=== PATIENT | female | born 1955 | race Caucasian/White ===

== ENCOUNTER 2023-10-29 07:31 | Outpatient (REF) | payer OTHER, SELFPAY ==
--- NOTE | ~2023-10-29 | XR_ITS ---
EXAMINATION: XR BILATERAL KNEES CLINICAL INFORMATION: Pain in left knee and right knee. COMPARISON: 09/14/2016. TECHNIQUE: 3 views of each knee. FINDINGS: LEFT KNEE: Moderate joint effusion. The bones are diffusely demineralized. Advanced degenerative changes in the medial and patellofemoral compartments with marked narrowing of the joint spaces, and marginal osteophytes. Lateral compartment preserved. RIGHT KNEE: No significant effusion. Bones are diffusely demineralized. Severe degenerative changes in the medial compartment with obliteration of the joint space and subchondral sclerosis with remodeling and hypertrophic change. Advanced degenerative changes with hypertrophic change in the patellofemoral compartment. XR/XR knee RT 3V IMPRESSION: Advanced degenerative changes in the bilateral knees, right greater than left.
--- NOTE | ~2023-10-29 | XR_ITS ---
EXAMINATION: XR BILATERAL KNEES CLINICAL INFORMATION: Pain in left knee and right knee. COMPARISON: 09/14/2016. TECHNIQUE: 3 views of each knee. FINDINGS: LEFT KNEE: Moderate joint effusion. The bones are diffusely demineralized. Advanced degenerative changes in the medial and patellofemoral compartments with marked narrowing of the joint spaces, and marginal osteophytes. Lateral compartment preserved. RIGHT KNEE: No significant effusion. Bones are diffusely demineralized. Severe degenerative changes in the medial compartment with obliteration of the joint space and subchondral sclerosis with remodeling and hypertrophic change. Advanced degenerative changes with hypertrophic change in the patellofemoral compartment. XR/XR knee LT 3V IMPRESSION: Advanced degenerative changes in the bilateral knees, right greater than left.
== END 2023-10-29 07:32 | disposition home or self-care (01) ==
LOC: HO.HOSX 07:31
PROVIDERS: Visit Provider Orthopaedic Surgery
DX: M17.0 Bilateral primary osteoarthritis of knee (principal)
CPT/HCPCS: 73562

== ENCOUNTER 2023-10-29 11:28 | Outpatient (AMB) | payer OTHER, SELFPAY ==
--- NOTE | 2023-10-29 11:36 | A.OFFVIS_ITS ---
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 Clarke with bilateral knee pain. Patient reports her pain has been going on for about 10 years and is a 6 on the 1-10 pain scale. She states her Right is worse. She just had injections the begining of October 2023. She is using CBD, compound gel, and topical THC with some relief. She denies injury and surgery. She wishes to hold off on total knee replacement surgery for as long as possible. She denies any locking or giving way. 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 Physical Exam Vital Signs: BMI result Body Mass Index 26.2 Const Other: Well-nourished well-developed very friendly female awake alert and oriented x3 in no acute distress Extrem Other: Bilateral lower extremity examination shows good capillary refill, no skin lesions noted, normal sensation light touch Bilateral knee examination shows minimal effusions, palpable crepitus with range motion, pain with range of motion, range of motion from -3 degrees to 115 degrees, no instability Results Reviewed Results Reviewed: X-rays of the patient's bilateral knee show severe degenerative joint disease with grade 4 doer-ja-zubl arthritis, subchondral sclerosis, osteophyte formation, no acute bony abnormalities Assessment & Plan Assessment & Plan (1) Arthritis of left knee: Code(s): M17.12 - Unilateral primary osteoarthritis, left knee Category: Medical (2) Arthritis of right knee: Code(s): M17.11 - Unilateral primary osteoarthritis, right knee Category: Medical Plan Mrs. Lynn presents with bilateral knee pains due to severe degenerative joint disease. The patient wishes to hold off on total knee replacement surgery for as long as possible. I agree with this plan. She will continue with her activity modifications. She has not able to get a cortisone injection today because she had injections earlier this month. She will contact me prior to her follow-up appointment in 3 months should any questions or concerns arise. Feel free to call me at any time should questions regarding her orthopedic management arise. I spent 22 minutes in reviewing the patient's records and imaging studies, seeing the patient and documenting in the medical record. Orders: Orders XR knee LT 3V Today M25.562 - Pain in left knee XR knee RT 3V Today M25.561 - Pain in right knee Coding Level of Care Code Est Pt Level 2 (59793) Diagnoses Arthritis of left knee M17.12 Arthritis of right knee M17.11
[2023-10-29 11:45] VITALS: BMI 26.2
== END 2023-10-29 12:16 | disposition home or self-care (01) ==
PROVIDERS: PCP Internal Medicine; Visit Provider Orthopaedic Surgery
DX: M17.0 Bilateral primary osteoarthritis of knee (principal)
CPT/HCPCS: 99213

== ENCOUNTER 2024-02-11 11:26 | Outpatient (AMB) | payer OTHER, SELFPAY ==
--- NOTE | 2024-02-11 11:28 | A.OFFVIS_ITS ---
Intake Visit Reasons: Right knee pain Intake Note: Sushma is a 68 year old female who presents with complaints of progressively worsening bilateral knee pains, right greater than left. The patient describes her right knee pain as sharp in nature. Her right knee pain has gotten worse over the last few years in spite of continued non operative treatments. She has done physical therapy exercises which aggravated her pain. She has also tried Tylenol and anti-inflammatory medicines which gave her minimal relief. She wishes to hold off on total knee replacement surgery for as long as possible. 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 Physical Exam Const Other: Well-nourished well-developed very friendly female awake alert and oriented x3 in no acute distress Extrem Other: Bilateral lower extremity examination shows good capillary refill, no skin lesions noted, normal sensation light touch Right knee examination shows a minimal effusion, palpable crepitus with range of motion, pain with range of motion, no instability Office Procedures Joint Injection/Aspiration Joint Injection/Aspiration Primary Site: right knee Prep: site was prepped using aseptic technique Injected: 40 mg of, DepoMedrol and 1% plain lidocaine Procedure: The patient tolerated the procedure well Coding 27620 - Large joint Procedure code (CPT) selection complete Results Reviewed Results Reviewed: X-rays of the patient's right knee show joint space narrowing, subchondral s clerosis, no acute bony abnormalities Assessment & Plan Assessment & Plan (1) Arthritis of right knee: Code(s): M17.11 - Unilateral primary osteoarthritis, right knee Category: Medical (2) Right knee pain: Code(s): M25.561 - Pain in right knee Category: Medical Plan Mrs. Lynn presents with progressively worsening bilateral knee pains, right greater than left, due to degenerative joint disease. I had a lengthy discussion with the patient regarding the treatment options. The risks and benefits of a right knee cortisone injection were discussed at length with the patient. The patient wished to proceed. She tolerated the injection well. I also gave her a prescription for a Medrol Dosepak. I will see her back in 3-4 weeks' time for possible left knee cortisone injection. Feel free to call me at any time should questions regarding her orthopedic management arise. I spent 22 minutes in reviewing the patient's records and imaging studies, seeing the patient and documenting in the medical record. Orders: Orders AMB Joint Injection/Aspiration Today M17.11 - Unilateral primary osteoarthritis, right knee Medications: New methylprednisolone (Medrol (Yahir)) PO PER PKG DIR 21 ea 0RF Coding Level of Care Code Est Pt Level 3 (60928) Diagnoses Arthritis of right knee M17.11 Right knee pain M25.561 CPT Codes Coding - 48122 Large joint: 24402 - Large joint ([id number])
== END 2024-02-11 11:58 | disposition home or self-care (01) ==
PROVIDERS: PCP Internal Medicine; Visit Provider Orthopaedic Surgery
DX: M17.11 Unilateral primary osteoarthritis, right knee (principal); M25.561 Pain in right knee
CPT/HCPCS: 20610; 99213

== ENCOUNTER → 2024-02-11 11:26 | Outpatient (BNVA) | payer OTHER, SELFPAY | PROVIDERS: PCP Internal Medicine; Visit Provider Orthopaedic Surgery | DX: M17.11 Unilateral primary osteoarthritis, right knee (principal) | CPT/HCPCS: 20610; J1010 ==

== ENCOUNTER 2024-03-03 08:12 | Outpatient (AMB) | payer OTHER, SELFPAY ==
[2024-03-03 08:14] VITALS: BMI 26.2
--- NOTE | 2024-03-03 08:14 | A.OFFVIS_ITS ---
Vital Signs 03/03/24 08:14 Height 5 ft 3 in Weight 148 lb BMI 26.2 Intake Visit Reasons: Left knee pain Intake Note: Sushma is a 68 year old female who presents with complaints of progressively worsening left knee pain. She describes her pain as sharp in nature. She has had cortisone injections in the past which gave her fairly good relief. She wishes to hold off on total knee replacement surgery for as long as possible. She has tried Tylenol and anti-inflammatory medicines which gave her minimal relief. She has also done physical therapy exercises which aggravated her pain. 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 Physical Exam Vital Signs: BMI result Body Mass Index 26.2 Const Other: Well-nourished well-developed very friendly female awake alert and oriented x3 in no acute distress Extrem Other: Bilateral lower extremity examination shows good capillary refill, no skin lesions noted, normal sensation light touch Left knee examination shows a minimal effusion, palpable crepitus with range of motion, pain with range of motion, range of motion from -3 degrees to 115 degrees, no instability Office Procedures Joint Injection/Aspiration Joint Injection/Aspiration Primary Site: left knee Prep: site was prepped using aseptic technique Injected: 40 mg of, DepoMedrol and 1% plain lidocaine Procedure: The patient tolerated the procedure well Coding 89011 - Large joint Procedure code (CPT) selection complete Results Reviewed Results Reviewed: X-rays of the patient's left knee taken previously show end-stage degenerative joint disease with grade 4 vido-ln-qqho arthritis, subchondral sclerosis, osteophyte formation, no acute bony abnormalities Assessment & Plan Assessment & Plan (1) Arthritis of left knee: Code(s): M17.12 - Unilateral primary osteoarthritis, left knee Category: Medical (2) Left knee pain: Code(s): M25.562 - Pain in left knee Category: Medical Plan Ms. Lynn presents with progressively worsening left knee pain due to severe degenerative joint disease. I had a lengthy discussion with the patient regarding the treatment options. The patient wishes to hold off on total knee replacement surgery for as long as possible. I agree with this plan. The risks and benefits of a left knee cortisone injection were discussed at length with the patient. The patient wished to proceed. She tolerated the injection well. She will continue with her activity modifications. She will follow up with me on an as-needed basis should her symptoms not plateau at an unacceptable level over the next few months. Feel free to call me at any time should questions regarding her orthopedic management arise. I spent 20 minutes in reviewing the patient's records and imaging studies, seeing the patient and documenting in the medical record. Orders: Orders AMB Joint Injection/Aspiration Today M17.12 - Unilateral primary osteoar thritis, left knee Coding Level of Care Code Est Pt Level 3 (60063) Diagnoses Arthritis of left knee M17.12 Left knee pain M25.562 CPT Codes Coding - 62485 Large joint: 85891 - Large joint ([id number])
== END 2024-03-03 08:35 | disposition home or self-care (01) ==
PROVIDERS: PCP Internal Medicine; Visit Provider Orthopaedic Surgery
DX: M17.12 Unilateral primary osteoarthritis, left knee (principal)
CPT/HCPCS: 20610; 99213

== ENCOUNTER → 2024-03-03 08:12 | Outpatient (BNVA) | payer OTHER, SELFPAY | PROVIDERS: PCP Internal Medicine; Visit Provider Orthopaedic Surgery | DX: M17.12 Unilateral primary osteoarthritis, left knee (principal) | CPT/HCPCS: 20610; J1010 ==

== ENCOUNTER 2024-04-07 08:22 | Outpatient (AMB) | payer OTHER, SELFPAY ==
[2024-04-07 08:23] VITALS: BMI 26.2
--- NOTE | 2024-04-07 08:23 | MHC.OFFVIS ---
Vital Signs 04/07/24 08:23 Height 5 ft 3 in Weight 148 lb BMI 26.2 Intake Visit Reasons: Left knee pain Intake Note: Sushma is a 68 year old female who presents with complaints of progressively worsening bilateral knee pains, left greater than right. She describes her left knee pain as sharp and severe in nature, 04/15. Her pain has gotten worse over the last few years in spite of continued non operative treatments. She has had multiple injections in the past. The most recent injection gave her minimal relief. She has also done physical therapy which aggravated her pain. She has failed the last 3 months of conservative treatment. She has tried Tylenol and anti-inflammatory medicines which gave her minimal relief. The patient has difficulty walking even short distances because of her pain. At this point her left knee pain is interfering with her activities of daily living and her ability to sleep well through the night. The patient states that normally her right knee pain is more severe than is her left. She did aggravate her left knee recently while getting out of her pool. 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 Vital Signs: BMI result Body Mass Index 26.2 Const Other: Well-nourished well-developed very friendly female awake alert and oriented x3 in no acute distress Extrem Other: Bilateral lower extremity examination shows good capillary refill, no skin lesions noted, normal sensation light touch Left knee examination shows a minimal effusion, palpable crepitus with range of motion, pain with range of motion, range of motion from -3 degrees to 115 degrees, no instability Results Reviewed Results Reviewed: X-rays of the patient's left knee taken previously show end-stage degenerative joint disease with grade 4 [id number]-[id number]-[id number] arthritis in the medial compartment and patellofemoral joint, subchondral sclerosis, osteophyte formation, no acute bony abnormalities Assessment & Plan Assessment & Plan (1) Left knee pain: Code(s): M25.562 - Pain in left knee Category: Medical (2) Arthritis of left knee: Code(s): M17.12 - Unilateral primary osteoarthritis, left knee Category: Medical Plan Ms. Lynn presents with progressively worsening bilateral knee pains, left greater than right, due to end-stage degenerative joint disease. I had a lengthy discussion with the patient regarding the treatment options. The patient wishes to hold off on total knee replacement surgery. She will continue with her activity modifications. She will follow up with me on an as-needed basis. Feel free to call me at any time should questions regarding her orthopedic management arise. I spent 21 minutes in reviewing the patient's records and imaging studies, seeing the patient and documenting in the medical record. Coding Level of Care Code Est Pt Level 3 (82146) Complex EM visit Add On G2211 Diagnoses Left knee pain M25.562 Arthritis of left knee M17.12
== END 2024-04-07 08:54 | disposition home or self-care (01) ==
PROVIDERS: PCP Internal Medicine; Visit Provider Orthopaedic Surgery
DX: M17.0 Bilateral primary osteoarthritis of knee (principal)
CPT/HCPCS: 99213

== ENCOUNTER → 2024-04-07 08:22 | Outpatient (BNVA) | payer OTHER, SELFPAY | PROVIDERS: PCP Internal Medicine; Visit Provider Orthopaedic Surgery ==

== ENCOUNTER 2024-04-08 10:56 | Outpatient (REF) | payer MEDICARE, SELFPAY ==
[2024-04-12 08:52] LABS: Immunoglobulin A 88 mg/dL (70-320)
[2024-04-12 17:18] LABS: Transglutaminase Ab IgG <1.0 U/mL; Transglutaminase IgA <1.0 U/mL
[2024-04-14 20:48] LABS: Gliadin Deamidated IgA Ab <1.0 U/mL; Gliadin Deamidated IgG Ab <1.0 U/mL
[2024-04-14 23:19] LABS: Endomysial IgA Antibody Negative (Negative)
== END 2024-04-08 10:57 | disposition home or self-care (01) ==
LOC: HO.LAB 10:56
PROVIDERS: Visit Provider Otolaryngology
DX: J30.89 Other allergic rhinitis (principal)
CPT/HCPCS: 36415; 82784; 82785; 86003; 86231; 86258; 86364

== ENCOUNTER 2024-06-09 10:49 | Outpatient (AMB) | payer OTHER, SELFPAY ==
[2024-06-09 10:56] VITALS: BMI 25.7
--- NOTE | 2024-06-09 10:56 | MHC.OFFVIS ---
Vital Signs 06/09/24 10:56 Height 5 ft 3 in Weight 145 lb BMI 25.7 Intake Visit Reasons: Bilateral knee pains Intake Note: Sushma is a 69 year old female who presents with complaints of progressively worsening bilateral knee pains, left greater than right. She describes her pains as sharp in nature. She has had cortisone injections which gave her fairly good relief. She wishes to hold off on total knee replacement surgery for as long as possible. 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 Physical Exam Vital Signs: BMI result Body Mass Index 25.7 Const Other: Well-nourished well-developed very friendly female awake alert and oriented x3 in no acute distress Extrem Other: Bilateral lower extremity examination shows good capillary refill, no skin lesions noted, normal sensation light touch Bilateral knee examination shows minimal effusions, palpable crepitus with range of motion, pain with range of motion, no instability Office Procedures AMB Joint Injection/Aspiration Joint Injection/Aspiration Primary Site: right knee Injected: 40 mg of, DepoMedrol and 1% plain lidocaine Procedure: The patient tolerated the procedure well Coding 84406 - Large joint Procedure code (CPT) selection complete AMB Joint Injection/Aspiration Joint Injection/Aspiration Primary Site: left knee Prep: site was prepped using aseptic technique Injected: 40 mg of, DepoMedrol and 1% plain lidocaine Procedure: The patient tolerated the procedure well Coding 10474 - Large joint Procedure code (CPT) selection complete Results Reviewed Results Reviewed: X-rays of the patient's bilateral knees taken previously show joint space narrowing, subchondral sclerosis, no acute bony abnormalities MRI of the patient's left knee shows diffuse degeneration of the medial meniscus as well as severe degenerative changes most significant in the medial compartment with edema within the medial femoral condyle and medial tibial plateau Assessment & Plan Assessment & Plan (1) Arthritis of left knee: Code(s): M17.12 - Unilateral primary osteoarthritis, left knee Category: Medical (2) Arthritis of right knee: Code(s): M17.11 - Unilateral primary osteoarthritis, right knee Category: Medical Plan Ms. Lynn presents with bilateral knee pains due to degenerative joint disease. The risks and benefits of bilateral knee cortisone injections were discussed at length with the patient. The patient wished to proceed. She tolerated the injections well. She will continue with her activity modifications. If she fails continued non operative treatments we will further discuss the risks and benefits of total knee replacement surgery. She will contact me prior to her follow-up appointment in 3 months should any questions or concerns arise. Feel free to call me at any time should questions regarding her orthopedic management arise. I spent 21 minutes in reviewing the patient's records and imaging studies, seeing the patient and documenting in the medical record. Orders: Orders AMB Joint Injection/Aspiration Today M17.12 - Unilateral primary osteoarthritis, left knee AMB Joint Injection/Aspiration Today M17.11 - Unilateral primary osteoarthritis, right knee Coding Level of Care Code Est Pt Level 3 (84994) Complex EM visit Add On G2211 Diagnoses Arthritis of left knee M17.12 Arthritis of right knee M17.11 CPT Codes Coding - 65362 Large joint: 84591 - Large joint ([id number]) Coding - 30566 Large joint: 63252 - Large joint ([id number])
--- OUTSIDE RECORDS SUMMARY | 2024-06-15 17:47 | XMS_ITS | Data Portability ---
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 Lynn presents with bilateral knee pains, right greater than left, due to degenerative joint disease. I had a lengthy discussion with the patient regarding the treatment options. She wishes to hold off on surgery for as long as possible. I agree with this plan. After verbal consent was given I prepped the right knee with alcohol. I then injected 5 cc of 1% plain lidocaine followed by 40 mg of Depo-Medrol. The patient tolerated the injection well. She will continue with her home exercise program. She will follow-up with me on an as-needed basis should her symptoms not plateau at an acceptable level over the next few months. harvinder Not available 10/08/2022 12:14:25 02/12/2023 02/12/2023 Diagnosis bilateral knee osteoarthritis. Patient opted for the following at today's visit 1. After verbal consent was obtained she received cortisone injection of the right & left knee. She tolerated the procedure well aftercare instructions were discussed in detail. Follow-up visit 3 months time for repeat clinical exam. Should her symptoms not improve or worsen she should contact my office. She agrees to the above-noted plan. Patient had numerous questions regarding pros, cons, benefits and risks regarding total joint replacement. Including techniques, downtime. I had well over 45 minutes of vxbe-rs-[id number] time with the patient. Please see under time spent. Indirect care and treatment in conjunction with Dr. Garcia Additional treatment plan discussed with the patient in detail included the following; - Provider focused nonsteroidal anti-inflammator y regimen (discussed were the pros, cons, benefits and risks as well as any black box warnings) in patients over 60 years old they should be very cautious in taking these medications due to potential decreased kidney function and or elevated blood pressure. - Analgesic pain medication for pain suppression (discussed were the pros, cons, benefits and risks as well as any black box warnings) - The use of topical pain relieving medication were discussed - The use of ice to decrease inflammation and pain - The use of assistive ambulatory devices for ambulation and fall prevention - Formal specific guided physical therapy program I reviewed my findings at length with the patient today. ??We discussed the nature and etiology of this problem along with current treatment options. We discussed the expected course and outcomes and what to expect. We also discussed risks and benefits. ?? All of their questions were answered today, and there was exhibited understanding and comprehension of all that was discussed. Time Spent: 10 minutes were spent reviewing previous imaging and charting. ??20 minutes were spent obtaining patient history. ??5 minutes were spent on physical exam. ??20??minutes were spent explaining diagnosis and assessment. Today's documentation was made using voice recognition software. This note may contain grammatical errors secondary to the software. Not available 02/12/2023 13:37:43 06/12/2023 06/12/2023 68-year-old female with bilateral knee arthritis asymptomatic on the left symptomatic on the right. She opted for right knee cortisone injection at today's visit. After verbal consent was given by patient. The procedure was carried out on the right knee for which she tolerated well. Aftercare instructions were discussed in detail. Follow-up visit 3 months time for repeat clinical exam. Should her symptoms not improve or worsen she should contact my office immediately. She agrees with this plan. Patient was seen and evaluated by Alexandra Partida PA-C in indirect conjuction with Documenting Provider: Maikel Garcia MD . He/She agrees with history, physical examination, tests/diagnostic imaging, and treatment plan. Additional treatment plan discussed with the patient (only initiated if in boldface font) otherwise not applicable. Treatment may include the following; - Provider focused nonsteroidal anti-inflammator y regimen (discussed were the pros, cons, benefits and risks as well as any black box warnings) in patients over 60 years old they should be very cautious in taking these medications due to potential decreased kidney function and or elevated blood pressure. - Analgesic pain medication for pain suppression (discussed were the pros, cons, benefits and risks as well as any black box warnings) - The use of topical pain relieving medication were discussed - The use of ice to decrease inflammation and pain - The use of assistive ambulatory devices for ambulation and fall prevention - Formal specific guided physical therapy program I reviewed my findings at length with the patient today. ??We discussed the nature and etiology of this problem along with current treatment options. We discussed the expected course and outcomes and what to expect. We also discussed risks and benefits. ?? All of their questions were answered today, and there was exhibited understanding and comprehension of all that was discussed. Time Spent: 10 minutes were spent reviewing previous imaging and charting. ??10 minutes were spent obtaining patient history. ??5 minutes were spent on physical exam. ??5??minutes were spent explaining diagnosis and assessment. Today's documentation was made using voice recognition software. This note may contain grammatical errors secondary to the software. Not available 06/12/2023 12:33:26 10/09/2023 10/09/2023 Diagnosis bilateral knee arthralgia symptomatic patient's request for bilateral cortisone injections. After verbal consent was made by patient. The procedures were carried out independently and bilaterally for which she tolerated well. Aftercare instructions were discussed in detail. I will have her follow-up with Alexandra Jeffrey PA-C within the next 3 months. Should she have any questions or concerns she should contact our office. She is aware the aftercare instructions for her injections were performed at today's visit. Patient is requesting a refill on her diclofenac cream we did discuss yesy-cgh-dxhtjbw Voltaren however she would prefer this sent off to her pharmacy. She states that they need to go to [place] versus [place] versus [facility]. I will send it off to her labeled pharmacy. I will prescribe her the prescription strength 3% diclofenac in her chart she has a prescription from another provider that was compounded which she would need to reach out to that provider for that specific regimen Patient was seen and evaluated by Alexandra Partida PA-C in indirect conjuction with Documenting Provider: Maikel Garcia MD . He/She agrees with history, physical examination, tests/diagnostic imaging, and treatment plan. Additional treatment plan discussed with the patient (only initiated if in boldface font) otherwise not applicable. Treatment may include the following; - Provider focused nonsteroidal anti-inflammator y regimen (discussed were the pros, cons, benefits and risks as well as any black box warnings) in patients over 60 years old they should be very cautious in taking these medications due to potential decreased kidney function and or elevated blood pressure. - Analgesic pain medication for pain suppression (discussed were the pros, cons, benefits and risks as well as any black box warnings) - The use of topical pain relieving medication were discussed - The use of ice to decrease inflammation and pain - The use of assistive ambulatory devices for ambulation and fall prevention - Formal specific guided physical therapy program I reviewed my findings at length with the patient today. ??We discussed the nature and etiology of this problem along with current treatment options. We discussed the expected course and outcomes and what to expect. We also discussed risks and benefits. ?? All of their questions were answered today, and there was exhibited understanding and comprehension of all that was discussed. Time Spent: 10 minutes were spent reviewing previous imaging and charting. ??10 minutes were spent obtaining patient history. ??5 minutes were spent on physical exam. ??5??minutes were spent explaining diagnosis and assessment. Today's documentation was made using voice recognition software. This note may contain grammatical errors secondary to the software. Not available 10/09/2023 10:44:00 Plan of Treatment Reminders Order Date Submit Date Provider Last Modified By Organization Details Last Modified Time Details Appointments None recorded. Lab None recorded. Referral None recorded. Procedures None recorded. Surgeries None recorded. Imaging XR, knee, 1 or 2 view - Left Knee Pain 2022 023 [facility], [address], [place], [address], 13:03:35 XR, knee, 1 or 2 view - Right Knee Pain 2022 023 [facility], [address], [place], [address], 3 13:03:35 XR, knee, weightbeari ng - Bilateral Knee Pain 2022 023 [facility], [address], [place], [address], 3 13:03:35 Medication Orders Kenalog 40 mg/mL suspension for injection 2022 023 [place] [id number] [facility], [address] [place], [address], 3 12:36:23 lidocaine (PF) 10 mg/mL (1 %) injection solution 2022 023 [facility] [address] [place], [address], 3 12:36:25 Kenalog 40 mg/mL suspension for injection 2022 023 [facility], [address] [place], [address], 3 12:36:23 lidocaine (PF) 10 mg/mL (1 %) injection solution 2022 023 [facility], [address] [place], [address], 3 12:36:25 Kenalog 40 mg/mL suspension for injection 2022 023 [facility], [address] [place], [address], 3 12:36:23 lidocaine (PF) 100 mg/5 mL (2 %) injection syringe 2022 023 [facility], [address] [place], [address], 3 12:36:28 diclofenac 3 % topical gel 2023 024 [facility], [address] [place], [address], 4 10:42:53 lidocaine (PF) 100 mg/5 mL (2 %) injection syringe 2023 024 Not available 15:32:39 triamcinolo ne acetonide 40 mg/mL suspension for injection 2023 024 [email or web address], [address] [place], [address], 4 10:38:07 lidocaine (PF) 100 mg/5 mL (2 %) injection syringe [address] [facility], [address] [place], [address], 4 10:38:07 triamcinolo ne acetonide 40 mg/mL suspension for injection [address] [facility]/[facility], [address] [place], [address], 4 10:38:07 Patient TargetsNo targets recorded. Patient Instructions Encounter Date Encounter Id Patient Instructions Last Modified By Organization Details Last Modified Time 02/12/2023 [id number] You have been provided with a cortisone injection in order to reduce the pain and inflammation that you are experiencing. The injection consists of two medications. Cortisone (an anti-inflammatory that will take 48-72 hours to take effect) and Lidocaine (a numbing agent that will last 2-3 hours). Please note that not everyone will have a lasting response following the injection. PATIENT INSTRUCTIONS Once the Lidocaine wears off, you may have an increase in your pain. I recommend icing the affected area for 20 minutes 3-4 times per day. It is recommended that you refrain from any high level activities using the joint or limb that was injected for approximately 24-48 hours. Normal day-to-day activities are generally not a problem. POSSIBLE SIDE EFFECTS Individuals with dark complexions may experience some skin discoloration locally at the site of the injection. There is the possibility of an increase in discomfort within 48 hours following the injection. This is called a ? flare? . To help minimize the chances of this, please see the post-injection instructions above. There is a less than 1% chance of an infection. If you notice any signs of infection (redness, warmth, drainage, fever greater than 100 degrees) please call our office or contact us through the portal [facility]. Not available 02/12/2023 12:34:30 Bilateral knee x-rays reveal bilateral degenerative joint disease grade 4 predominantly in the medial and patellofemoral compartments. Without acute bony abnormality. There is notable osteophyte formation and subchondral sclerosis Not available 02/12/2023 12:32:21 06/12/2023 [id number] You have been provided with a cortisone injection in order to reduce the pain and inflammation that you are experiencing. The injection consists of two medications. Cortisone (an anti-inflammatory that will take 48-72 hours to take effect) and Lidocaine (a numbing agent that will last 2-3 hours). Please note that not everyone will have a lasting response following the injection. PATIENT INSTRUCTIONS Once the Lidocaine wears off, you may have an increase in your pain. I recommend icing the affected area for 20 minutes 3-4 times per day. It is recommended that you refrain from any high level activities using the joint or limb that was injected for approximately 24-48 hours. Normal day-to-day activities are generally not a problem. POSSIBLE SIDE EFFECTS Individuals with dark complexions may experience some skin discoloration locally at the site of the injection. There is the possibility of an increase in discomfort within 48 hours following the injection. This is called a ? flare? . To help minimize the chances of this, please see the post-injection instructions above. There is a less than 1% chance of an infection. If you notice any signs of infection (redness, warmth, drainage, fever greater than 100 degrees) please call our office or contact us through the portal [facility]. Not available 06/12/2023 12:34:52 10/09/2023 [id number] You have been provided with a cortisone injection in order to reduce the pain and inflammation that you are experiencing. The injection consists of two medications. Cortisone (an anti-inflammatory that will take 48-72 hours to take effect) and Lidocaine (a numbing agent that will last 2-3 hours). Please note that not everyone will have a lasting response following the injection. PATIENT INSTRUCTIONS Once the Lidocaine wears off, you may have an increase in your pain. I recommend icing the affected area for 20 minutes 3-4 times per day. It is recommended that you refrain from any high level activities using the joint or limb that was injected for approximately 24-48 hours. Normal day-to-day activities are generally not a problem. POSSIBLE SIDE EFFECTS Individuals with dark complexions may experience some skin discoloration locally at the site of the injection. There is the possibility of an increase in discomfort within 48 hours following the injection. This is called a ? flare? . To help minimize the chances of this, please see the post-injection instructions above. There is a less than 1% chance of an infection. If you notice any signs of infection (redness, warmth, drainage, fever greater than 100 degrees) please call our office or contact us through the portal [facility]. Not available 10/09/2023 10:38:06 Reason for Referral None Reported. Problems Name Problem SNOMED Code Status Onset Date Resolution Date Notes Provider Name and Address Organization Details Recorded Time Osteoarthri tis of left knee joint 7976890159113 09 Active 2022 ALEXANDRA PARTIDA PA-C [address] [facility], [place], [address], [place] [facility] 3 12:34:08 Osteoarthri tis of right knee joint 6601450283604 00 Active 2022 Ernesto Clarke MD [address], [place], [address], [place] [facility], [facility] 3 12:13:44 Pain of knee region 8749680642 Active 2023 ALEXANDRA PARTIDA PA-C [address] [facility],[address], [place], [address], [place] [facility], [facility] 4 10:42:47 Problem Notes None recorded. Procedures Surgical History Date Name Laterality Status Provider Name and Address Organization Details Recorded Time 4 Knee Joint/Bursa Asp & Inj completed ALEXANDRA PARTIDA PA-C [address], [place], [address], [place] [facility], [facility] 10/09/2023 07:51:15 3 Knee Joint/Bursa Asp & Inj completed ALEXANDRA PARTIDA PA-C [address], [place], [address], [place] [facility], [facility] 06/12/2023 12:31:52 3 Knee Joint/Bursa Asp & Inj completed ALEXANDRA PARTIDA PA-C [address], [place], [address], [place] [facility], [facility] 02/12/2023 12:31:27 3 Knee Joint/Bursa Asp & Inj completed Ernesto Clarke MD [address], [place], [address], [place] [facility], P 10/08/2022 12:13:37 delivery completed Celine Dorantes [facility], P 10/08/2022 11:43:03 Imaging Results None recorded. Procedure Notes None recorded. Medical Equipment None Reported. Allergies Allergen ID Allergen Name Allergen Category Reaction Reaction Severity Criticality Documentation Date Start Date Code Code System Note Provider Name and Address Organization Details Recorded Time 1495 amoxicill in medicatio n Not available Not available Not available 10/08/2022 723 RxNorm Alysha valladares, [place] [facility], [facility] 3 12:37:19 1496 Substance with sulfonami de structure and antibacte rial mechanism of action (substanc e) medicatio n Not available Not available Not available 10/08/2022 80627 8003 SNOMED Celine Dorantes null, [place] [facility], [facility] 3 11:37:59 7012 Iodinated contrast media (substanc e) medicatio n Not available Not available Not available 02/12/2023 [id number] 2003 SNOMED Alysha Gas[place] null, [place] [facility], [facility] 3 16:22:32 Medications Name Sig Start Date Stop Date Status Note LastModified by Organization Details LastModified Time dbg - diclofenac 3% / baclofen2% / gabapentin 6% cream APPLY 1-3 GRAMS TO THE AFFECTED AREA 3-4 TIMES DAILY (KNEES, HIPS) active Not Available Not Available No t Available diclofenac 3 % topical gel APPLY TO knee BY TOPICAL ROUTE 2 TIMES PER DAY active Not Available Not Available No t Available Levoxyl 88 mcg tablet active Not Available Not Available N ot Available clindamycin HCl 150 mg capsule TAKE TWO CAPSULES FIRST TIME ONLY, THEN 1 CAPSULE EVERY 6HR UNTIL FINISHED 06/12 completed Not Available Not Available Not Available amoxicillin 500 mg tablet TAKE 2 TABLETS BY MOUTH NOW, THEN 1 TABLET EVERY 8 HOURS UNTIL FINISHED 06/12 completed Not Available Not Available Not Available ketorolac 0.5 % eye drops INSTILL ONE DROP BOTH EYES FOUR TIMES A DAY X 6 WEEKS POST CATARACT SURGERY INSTRUCTE D 06/12 completed Not Available Not Available Not Available lorazepam 0.5 mg tablet TAKE 1 TABLET BY MOUTH 3 TIMES A DAY NEEDED FOR ANXIETY 10/08 completed Not Available Not Available Not Available triamcinolo ne acetonide 40 mg/mL suspension for injection Take 40 mg by injection route. 2023 active Not Available Not Available Not Avai lable Salagen (pilocarpin e) 5 mg tablet active Not Available Not Available Not Available chlorhexidi ne gluconate 0.12 % mouthwash TAKE 1/2 OZ TWICE A DAY, RINSE FOR 30 SECONDS AND THEN SPIT, DO NOT SWALLOW 10/08 completed Not Available Not Available Not Available lidocaine (PF) 10 mg/mL (1 %) injection solution Take 2 mL by injection route. 06/12 completed Not Available Not Available Not Available Excedrin Extra Strength active Not Available Not Available Not Available lidocaine (PF) 100 mg/5 mL (2 %) injection syringe Take 2 mL by injection route. 2023 active Not Available Not Available Not Avai lable diclofenac 1.5 % drop-methyl salicyl 10 %-menthol 6 %-camph 3.1% patch APPLY 1 TO 3 ML (1 TO 3 GM) to the affected area 3 to 4 times a day active Not Available Not Available No t Available Vitals Date Recorded Body height Provider Name an d Address Organization Details Last Updated DateTime 06/12/2023 162[address] [facility] 06/12/2023 12:10:19 Date Recorded Body height Provider Name an d Address Organization Details Last Updated DateTime 10/09/2023 162[address] [place] [facility] 10/09/2023 09:37:13 Date Recorded Body height Provider Name an d Address Organization Details Last Updated DateTime 02/12/[address] [facility] [place] [facility] 02/12/2023 12:46:24 Date Recorded Body weight Body mass index (BMI) Body height Provider Name and Address Organization Details Last Updated DateTime 10/08/2022 27941.44 g 30.6 kg/m2 162.[address] [place] [facility] 10/08/2022 11:40:06 Social History Question Answer Notes LastModified by Organizat ion Details LastModified Time Tobacco Smoking Status Never Smoker [facility], [place] [facility] 02/12/2023 16:24:25 What Is Your Level Of Alcohol Consumption? None Information not available 02/12/2023 Do You Use Any Illicit Or Recreational Drugs? No Uses CBD Sometimes Information not available 02/12/2023 Do You Or Have You Ever Used Any Other Forms Of Tobacco Or Nicotine? No Information not available 02/12/2023 Sex: Unknown Functional Status None recorded. Mental Status None recorded. Family History Relationship Description Onset Age of this Age Resolved Age Notes LastModified by Organization Details LastModified Time Mother Diabetes mellitus [email or web address] Not available 2022 11:42:46 Mother Heart disease Not available 2022 16:22:51 Father Hypertensive disorder Not available 2022 16:23:07 Brother Hypertensive disorder Not available 2022 16:23:07 Medical History Condition Response Osteopenia Y Thyroid Problems Y Gynecological HistoryNo gynecological history recorded. Obstetrics History GPAL:G 0 P 0 0 0 0 Past Encounters Encounter ID Performer Location Encounter Start Date Encounter Closed Date Diagnosis/Indication Diagnosis SNOMED-CT Code Diagnosis ICD10 Code [id number] MD CHITO Torres [address] [facility] [address] [place] [address] 10/08/2022 11:30:23 10/08/2022 11:57:35 Osteoarthritis of right knee joint 3162480574 12059 M17.11 [id number] MD CHITO [facility] [address] [facility] [address] [place] [address] 02/12/2023 12:38:39 02/12/2023 13:37:43 Pain of bilateral knee joints 4893923669 76836 M25.561 M25.562 Osteoarthr itis of right knee joint 1176857350 89857 M17.11 Osteoarthr itis of left knee joint 4581830360 33882 M17.12 [id number] MD CHITO [facility] [address] [facility] [address] [place] [address] 06/12/2023 11:27:55 06/12/2023 12:04:19 Osteoarthritis of left knee joint 5637820112 06403 M17.12 Osteoarthr itis of right knee joint 2381522541 65816 M17.11 [id number] MD CHITO [facility] [address] [place] [address] 10/09/2023 09:08:03 10/09/2023 09:44:21 Osteoarthritis of right knee joint 8348329630 33107 M17.11 Osteoarthr itis of left knee joint 6343610166 78890 M17.12 Pain of knee region 1003 805746 M25.561 G89.29 Health Concerns Section Related Observation LastModified by Organization Detai ls LastModified Time None Recorded Concern Status LastModified by Organization Details LastModified Time None Recorded Advance Directives Directive None Recorded Payers Encounter Date Sequence Insurance Name Policy Number Policy Sheets Covered Member ID Sheets Member ID Guarantor Name 10/08/2022 1 [employer] MED[employer] ADVANTAGE PLAN (MEDICARE REPLACEMENT HMO) [id number] Sushma Lynn [id number] Sushmavargas Lynn 02/12/2023 1 [employer] - MED[employer]ARE ADVANTAGE PLAN (MEDICARE REPLACEMENT HMO) [id number] Sushma Lynn [id number] Sushmavargas Lynn 06/12/2023 1 [employer] [place] - MEDICARE ADVANTAGE PLAN (MEDICARE REPLACEMENT HMO) [id number] Sushma Lynn [id number] Sushma Lynn 10/09/2023 1 [employer] [place] - MEDICARE ADVANTAGE PLAN (MEDICARE REPLACEMENT HMO) [id number] Sushma Lynn [id number] Sushma Lynn Notes Date Note Type Note Provider Name and Address Organization Details Recorded Time 10/08/2022 text/html The patient pres ents with complaints of progressively worsening bilateral knee pains, right greater than left. She describes her right knee pain as sharp and severe in nature. She has taken Tylenol and anti-inflammatory medicines which gave her minimal relief. She has also had cortisone injections which gave her temporary relief. She has done physical therapy exercises which aggravated her pain. She wishes to hold off on surgery for as long as possible. Ernesto Clarke MD [address] [facility],[place] [address], [place], [address], [place] - [facility], [facility] 10/08/2022 12:14:43 02/12/2023 text/html Assessment & Mari n: Dr. Clarke note from 10/08/2022Mrs. Shane presents with bilateral knee pains, right greater than left, due to degenerative joint disease. I had a lengthy discussion with the patient regarding the treatment options. She wishes to hold off on surgery for as long as possible. I agree with this plan. After verbal consent was given I prepped the right knee with alcohol. I then injected 5 cc of 1% plain lidocaine followed by 40 mg of Depo-Medrol. The patient tolerated the injection well. She will continue with her home exercise program. She will follow-up with me on an as-needed basis should her symptoms not plateau at an acceptable level over the next few months.osteoarthriti s of right knee joint HPI:67-year-old female history of bilateral knee osteoarthritis last seen by Dr. Clarke on the above-noted date. She returns with ongoing knee pain. States she is not interested in knee replacement surgery. Here for follow-up evaluation. ALEXANDRA PARTIDA PA-C [address] [facility] [address], [place], [address], [place] - [facility], [facility] 02/12/2023 13:41:07 06/12/2023 text/html 68-year-old fema le history of bilateral knee arthritis. Cortisone injection has worn off in the right knee she is asymptomatic on the left here for follow-up requesting for cortisone injection of the right knee joint. No change in history ALEXANDRA PARTIDA PA-C [address] [facility],[place] [address], [place], [address], [place] - [facility], [facility] 06/12/2023 12:35:37 10/09/2023 text/html 68-year-old fema le with bilateral knee osteoarthritis requesting for bilateral cortisone injections of the knees. Her left knee she has not had injections in greater than 6 months her right knee she had a cortisone injection on 06/12/2023 which is since worn off. She is not considering surgery ALEXANDRA PARTIDA PA-C [address] [facility] [address], [place], [address], [place] - [facility] 10/09/2023 10:44:46 OBGyn Episode No OBEpisode recorded.
--- OUTSIDE RECORDS SUMMARY | 2024-06-15 17:47 | XMS_ITS | Continuity of Care Document ---
Author Organization [facility] [facility] Address [address] [place] [address]- Care Team Providers Care General Merchandise Salesperson Name Role Phone Augustus Hernandez MD Primary Care Physician [phone] Encounter [facility] [place] Date(s): 05/25/24 - 06/01/24 [facility] Adult [address] [place] [address]- Encounter Diagnosis Bilateral knee pain(Discharge Diagnosis) - 05/25/24 Attending Physician: Augustus Hernandez MD Encounter Type: Office Visit Allergies, Adverse Reactions, Alerts Substance Criticality Severity Reaction Reaction Severity Status amoxicillin 1 Amoxicillin Nunes spension caused colitis Active sulfa drugs Active 1Patient stated it was the suspension formula Immunizations Given and Recorded Vaccine Date Status Refusal Reason influenza virus vaccine, inactivated 05/22/20 Give n influenza virus vaccine, inactivated 05/19/20 Give n tetanus-diphtheria toxoids (Td) 08/08/13 Recorded Medications Excedrin 2 tablet, By Mouth, Every 6 hours, 0 Refills, Maintenance, 10/06/13 10:18:56 AM EDT Start Date: 10/06/13 Status: Ordered Repeat number: 1 Levoxyl 0.088 mg oral tablet 1 tablet, By Mouth, Daily, # 90 tablet, 3 Refills, Maintenance, 12/11/23 10:27:00 AM EDT, [facility], 156, cm, 12/11/23 10:15:00 EDT, Height Start Date: 12/11/23 Status: Ordered Quantity: 90.0 Unit: tablet Repeat number: 4 LORazepam 0.5 mg oral tablet 1 tablet = 0.5 mg, By Mouth, 3 times a day, PRN for anxiety, # 30 tablet, 0 Refills, Maintenance, 12/11/23 10:26:00 AM EDT, Tablet, [facility]/pharmacy #[id number], 156, cm, 12/11/23 10:15:00 EDT, Height Start Date: 12/11/23 Status: Ordered Quantity: 30.0 Unit: tablet Repeat number: 1 MiraLax oral powder for reconstitution = 17 Gm, By Mouth, Daily, dissolve in water before taking, # 255 Gm, 0 Refills, Maintenance, 11/30/21 10:08:00 AM EDT, REC Powder, Partial fill upon patient request if the prescription is for a schedule II opioid drug. Start Date: 11/30/21 Status: Ordered Quantity: 255.0 Unit: g Repeat number: 1 Refresh 1 drops, Eyes, Both, 2 times a day, 0 Refills, Maintenance, 10/06/13 10:18:50 AM EDT Start Date: 10/06/13 Status: Ordered Repeat number: 1 Restasis Every 12 hours, 0 Refills, Maintenance, 05/25/24 1:07:00 PM EST, Partial fill upon patient request if the prescription is for a schedule II opioid drug. Start Date: 05/25/24 Status: Ordered Repeat number: 1 Salagen 5 mg oral tablet 1 tablet = 5 mg, By Mouth, 4 times a day, 0 Refills, Maintenance, 10/06/13 10:18:28 AM EDT Start Date: 10/06/13 Status: Ordered Repeat number: 1 Vitamin D3 1000 intl units oral tablet 1 tablet = 1,000 International_Units, By Mouth, Daily, # 30 tablet, 0 Refills, Maintenance, 208:43:00 AM EDT, Tablet Start Date: 10/18/19 Status: Ordered Quantity: 30.0 Unit: tablet Repeat number: 1 Problem List Condition Confirmation Course Effective Dates Status H ealth Status Informant Cyst of kidney, acquired 1 Confirmed Active Allergic rhinitis Confirmed Active Burping Confirmed Active Chronic tension headaches Confirmed Active Coronavirus infection Confirmed Active Cough Confirmed Active Dizziness Confirmed Active Dry eyes Confirmed Active Dyspnea on exertion Confirmed Active Family history of diabetes mellitus Confirmed Active Anxiety, generalized Confirmed Active History of compression fracture of vertebral column Confirmed Active Gladys's thyroiditis Confirmed Active Shingles Confirmed Active H/O colonoscopy 2, 3 Confirmed Active IT band syndrome Confirmed Active Hypotension Confirmed Active Lumbar spondylosis Confirmed Active Hematuria, microscopic Confirmed Active Nose dryness Confirmed Active Osteoarthritis of right knee Confirmed Active Borderline osteopenia Confirmed Active Bilateral knee pain Confirmed Active Polyp of colon 4 Confirmed Active Borderline blood pressure Confirmed Active Primary Sjogren's syndrome Confirmed Active 1PVU 06973; repeat 0732-4116 3Colonoscopy 2012 normal, repeat 2022. 4colo 2021 Diagnosis Diagnosis Type Effective Dates Health Status Cl inical Service Informant Bilateral knee pain Discharge Diagnosis 05/25/24 Vital Signs Most recent to oldest [Reference Range]: 1 Height 156.0 cm (05/25/24 1:03 PM) Social History Social History Type Response Smoking Status Former smoker, quit more than 30 days ago; Other: Quit smoking age 21; entered on: 10/09/18 Sex Sex Representation Female (finding) Patient Care team information Care Team Personnel Name: Augustus Hernandez MD Position: S Physician - Primary Care Member Role: PCP [address]: [address] [place], [place] [address] Telecom: Care Team Related Persons Name: HARJEET MORENO Name: MELINDA HAGER Insurance Providers Guarantor name: ACE MORENO Health Plan Information #: 1 Payer: [facility] ADV[employer] Member Number: [id number] Policy Number: NA Group Number: [id number] Health Plan Information #: 2 Payer: [facility] AD[employer] Member Number: [id number] Policy Number: NA Group Number: [id number]
--- OUTSIDE RECORDS SUMMARY | 2024-06-15 17:47 | XMS_ITS ---
Author Name [facility] Organization Unknown History of Medication Use Medication Directions Dispensed Refills Start Date End Date Stat us triamcinolone acetonide 40 mg/mL suspension for injection Take 40 mg by injection route. 10/11/2023 active lorazepam 0.5 mg tablet TAKE 1 TABLET BY MOUTH 3 TIMES A DAY NEEDED FOR ANXIETY 02/14/2023 active dbg - diclofenac 3% / baclofen2% / gabapentin 6% cream APPLY 1-3 GRAMS TO THE AFFECTED AREA 3-4 TIMES DAILY (KNEES, HIPS) 02/14/2023 active chlorhexidine gluconate 0.12 % mouthwash TAKE 1/2 OZ TWICE A DAY, RINSE FOR 30 SECONDS AND THEN SPIT, DO NOT SWALLOW 02/14/2023 active Salagen (pilocarpine) 5 mg tablet 02/14/2023 active amoxicillin 500 mg tablet TAKE 2 TABLETS BY MOUTH NOW, THEN 1 TABLET EVERY 8 HOURS UNTIL FINISHED 02/14/2023 active lidocaine (PF) 10 mg/mL (1 %) injection solution Take 2 mL by injection route. 02/14/2023 active Salagen (pilocarpine) 5 mg tablet 02/14/2023 active clindamycin HCl 150 mg capsule TAKE TWO CAPSULES FIRST TIME ONLY, THEN 1 CAPSULE EVERY 6HR UNTIL FINISHED 02/14/2023 active ketorolac 0.5 % eye drops INSTILL ONE DROP BOTH EYES FOUR TIMES A DAY X 6 WEEKS POST CATARACT SURGERY INSTRUCTED 02/14/2023 active Levoxyl 88 mcg tablet 02/14/2023 active lidocaine (PF) 100 mg/5 mL (2 %) injection syringe Take 2 mL by injection route. 06/17/2023 active diclofenac 3 % topical gel APPLY TO LESION AREAS BY TOPICAL ROUTE 2 TIMES PER DAY 02/14/2023 active Kenalog 40 mg/mL suspension for injection Take 1 mL by injection route. 02/14/2023 active Allergies Allergen Reaction Severity Comment Documented Date Source Statu s AMOXICILLIN ENS_AONECT IODINATED CONTRAST MEDIA ENS_AON ECT SULFA (SULFONAMIDE ANTIBIOTICS) ENS_AONECT Problems Problem Status Onset Date Problem Type Date of Resoluti on Source Osteoarthritis of left knee joint active 2023-02-12 ProblemAct ENS_AONECT Osteoarthritis of right knee joint active 2022-10-08 ProblemAct ENS_AONECT Pain of knee region active 2023-10-09 ProblemAct ENS_AONECT
== END 2024-06-09 11:29 | disposition home or self-care (01) ==
PROVIDERS: PCP Internal Medicine; Visit Provider Orthopaedic Surgery
DX: M17.0 Bilateral primary osteoarthritis of knee (principal)
CPT/HCPCS: 20610; 99213

== ENCOUNTER → 2024-06-09 10:49 | Outpatient (BNVA) | payer OTHER, SELFPAY | PROVIDERS: PCP Internal Medicine; Visit Provider Orthopaedic Surgery | DX: M17.0 Bilateral primary osteoarthritis of knee (principal) | CPT/HCPCS: 20610; J1010; J2003 ==

== ENCOUNTER 2024-10-06 09:23 | Outpatient (AMB) | payer OTHER, SELFPAY ==
[2024-10-06 09:26] VITALS: BMI 25.7
--- NOTE | 2024-10-06 09:26 | MHC.OFFVIS ---
Vital Signs 10/06/24 09:26 Height 5 ft 3 in Weight 145 lb BMI 25.7 Intake Visit Reasons: Bilateral knee pains Intake Note: Sushma is a 69 year old female who presents with complaints of bilateral knee pains. She describes her pains as sharp in nature. She has had cortisone injections in the past which gave her fairly good relief. She wishes to hold off on surgery for as long as possible. 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 Physical Exam Vital Signs: BMI result Body Mass Index 25.7 Extrem Other: Bilateral knee examination shows minimal effusions, palpable crepitus with range of motion, pain with range of motion, no instability Office Procedures AMB Joint Injection/Aspiration Joint Injection/Aspiration Primary Site: left knee Prep: site was prepped using aseptic technique Injected: 40 mg of, DepoMedrol and 1% plain lidocaine Procedure: The patient tolerated the procedure well Coding 59298 - Large joint Procedure code (CPT) selection complete AMB Joint Injection/Aspiration Joint Injection/Aspiration Primary Site: right knee Prep: site was prepped using aseptic technique Injected: 40 mg of, DepoMedrol and 1% plain lidocaine Procedure: The patient tolerated the procedure well Coding 60930 - Large joint Procedure code (CPT) selection complete Results Reviewed Results Reviewed: X-rays of the patient's bilateral knees taken previously show joint space narrowing, subchondral sclerosis, no acute bony abnormalities Assessment & Plan Assessment & Plan (1) Arthritis of left knee: Code(s): M17.12 - Unilateral primary osteoarthritis, left knee Category: Medical (2) Arthritis of right knee: Code(s): M17.11 - Unilateral primary osteoarthritis, right knee Category: Medical Plan Ms. Lynn presents with bilateral knee pains due to osteoarthritis. The risks and benefits of bilateral knee cortisone injections were discussed at length with the patient. The patient wished to proceed. She tolerated the injections well. She will contact me prior to her follow-up appointment in 3 months should any questions or concerns arise. Feel free to call me at any time should questions regarding her orthopedic management arise. I spent 20 minutes in reviewing the patient's records and imaging studies, seeing the patient and documenting in the medical record. Orders: Orders AMB Joint Injection/Aspiration Today M17.12 - Unilateral primary osteoarthritis, left knee AMB Joint Injection/Aspiration Today M17.11 - Unilateral primary osteoarthritis, right knee Coding Level of Care Code Est Pt Level 3 (79860) Complex EM visit Add On G2211 Diagnoses Arthritis of left knee M17.12 Arthritis of right knee M17.11 CPT Codes Coding - 51088 Large joint: 97057 - Large joint ([id number]) Coding - 90816 Large joint: 10663 - Large joint ([id number])
--- OUTSIDE RECORDS SUMMARY | 2024-10-06 10:28 | XMS_ITS | Clinical Summary ---
Author Organization [facility] Address [address] [place] [address] Care Team Providers Care Guard Driver Name Role Phone Antelmo Abreu MD Primary Care Provider Allergies Active Allergy Reactions Criticality Noted Date Comments Amoxicillin Other (See Comments) 10/09/2021 Other reaction(s): Amoxicillin Suspension Patient stated it was the suspension formula Blue Dyes (Parenteral) 04/29/2017 Sulfa Antibiotics 04/29/2017 Medications Medication Sig Dispensed Refills Start Date End Date Status LEVOXYL 100 MCG tablet 0 01/27/2017 Active SALAGEN 5 MG tablet 0 03/21/2017 Activ e clonazePAM (KlonoPIN) 0.5 MG tablet Take 0.5 mg by mouth every 6 (six) hours as needed. for anxiety 1 09/04/2018 Active Diclofenac Sodium 1 % GEL topical 0 06/18/2019 Active LEVOXYL 88 MCG tablet 0 04/19/2019 Active methylPREDNISolone (MEDROL DOSEPACK) 4 MG tablet follow package directions 21 tablet 0 09/17/2019 Active LORazepam (ATIVAN) 0.5 MG tablet Take 0.5 mg by mouth 3 (three) times a day as needed. for anxiety 0 11/20/2020 Active Aspirin-Acetaminoph en-Caffeine (EXCEDRIN EXTRA STRENGTH PO) Take by mouth. 0 10/06/2013 Active famciclovir (FAMVIR) 500 MG tablet TAKE 1 TABLET BY MOUTH EVERY 8 HOURS FOR 7 DAYS 0 07/21/2021 Active famotidine (PEPCID) 20 MG tablet Take 20 mg by mouth. 0 02/28/2021 Active gabapentin (NEURONTIN) 100 MG capsule TAKE 1 CAPSULE BY MOUTH 2 TIMES A DAY,X14 DAYS 0 07/25/2021 Active Active Problems Problem Noted Date Diagnosed Date Dextroscoliosis 07/09/2019 Degenerative disc disease, lumbar 07/09/2019 It band syndrome, left 07/09/2019 Primary osteoarthritis of right knee 02/19/2019 Primary osteoarthritis of left knee 11/20/2018 Chronic pain of right knee 11/20/2018 Family History Medical History Relation Name Comments Diabetes Mother Relation Name Status Comments Mother Social History Tobacco Use Types Packs/Day Years Used Date Smoking Tobacco: Never Assessed Sex and Gender Information Value Date Recorded Sex Assigned at Not on file Gender Identity Not on file Sexual Orientation Not on file Job Start Date Occupation Industry Not on file Not on file Not on file Last Filed Vital Signs Vital Sign Reading Time Taken Comments Blood Pressure - - Pulse - - Temperature - - Respiratory Rate - - Oxygen Saturation - - Inhaled Oxygen Concentration - - Weight 80.7 kg (178 lb) 04/29/2017 11:12 AM EDT Height 162.6 cm (5' 4 ) 04/29/2017 11:12 AM EDT Body Mass Index 30.55 04/29/2017 11:12 AM EDT Plan of Treatment Health Maintenance Due Date Last Done Comments Hepatitis C Screening 1955 COVID-19 Vaccine (#1) 1957 Depression Screening 1969 Preventative Health Evaluation 1975 Colon Cancer Screening (Colonoscopy) 2002 Breast Cancer Screening (Mammogram) 2007 Shingrix-Zoster Vaccine (1 o f 2) 2007 DTap / Tdap / Td (1 - Tdap) 08/09/2013 08/08/2013 Fall Risk Assessment 2022 Osteoporosis Screening (DEXA Scan) 2022 Pneumococcal Vaccine (1 of 1 - PCV) 2022 Influenza Vaccine (#1) 2024 0, 05/19/2020 RSV Adult > 60+ Yrs or (1 - 1-dose 75+ series) 2032 Hepatitis B Vaccines Aged Out No long er eligible based on patient's age to complete this topic RSV Ped < 20 months Aged Out No longe r eligible based on patient's age to complete this topic Insurance Payer Benefit Plan / Group Subscriber ID Effective Dates Phone Address [facility] MEDICARE [facility] MEDICARE ADVANTAGE [id number] 2022-Yue nt [address] [place] [address] Care Teams Guard Driver Relationship Specialty Start Date End Date Antelmo Abreu MD [address] [place] [address] [address] [place] [address] PCP - General Internal Medicine 04/28/17
--- OUTSIDE RECORDS SUMMARY | 2024-10-06 10:28 | XMS_ITS | Clinical Summary ---
Author Organization [facility] ity Address [address] [place] [address] Care Team Providers Care Steel Shot Header Operator Name Role Phone Augustus Hernandez MD Primary Care Provider [phone] Encounters Date Type Department Care Team Description 09/15/2024 Telephone Gastroenterology - [address] [place] [address] Samara Kenney PA Provider call back from Last 3 Months Surgical History Surgery Date Site/Laterality Comments SECTION PROCEDURE: SECTION Medical History Medical History Date Comments Thyroid disorder DX:Thyroid diso rder Sjoegren syndrome DX:Sjoegren sy ndrome Family History Medical History Relation Name Comments Diabetes Mother Relation Name Status Comments Mother Social History Tobacco Use Types Packs/Day Years Used Date Smoking Tobacco: Never Assessed Comments Unknown Sex and Gender Information Value Date Recorded Sex Assigned at Not on file Legal Sex Female 11:50 PM EST Gender Identity Not on file Sexual Orientation Not on file Obstetrics History Plan of Treatment Health Maintenance Due Date Last Done Comments Breast Cancer Screening 1957 DTaP,Tdap,and Td Vaccines (1 - Tdap) 1976 Pneumococcal Vaccine: 50+ Ye ars (1 of 1 - PCV) 2007 Zoster Vaccines (1 of 2) 2007 Colorectal Cancer Screening: Colonoscopy 06/09/2022 Depression Screening 06/09/2022 Falls Risk Assessment 06/09/2022 Hepatitis C Screening 06/09/2022 Osteoporosis Screening (Bone Density Screening) 06/09/2022 Social Influencers of Health Screening 06/09/2022 COVID-19 Vaccine ( - 2023-2 5 season) 2024 Influenza Vaccine (#1) 2024 RSV Immunization Adult Patie nts (1 - 1-dose 75+ series) 2032 HIB Vaccines Aged Out No longer eligi ble based on patient's age to complete this topic HPV Vaccines Aged Out No longer eligi ble based on patient's age to complete this topic Hepatitis A Vaccines Aged Out No long er eligible based on patient's age to complete this topic Hepatitis B Vaccines Aged Out No long er eligible based on patient's age to complete this topic IPV Vaccines Aged Out No longer eligi ble based on patient's age to complete this topic MMR Vaccines Aged Out No longer eligi ble based on patient's age to complete this topic Meningococcal ACWY Vaccine Aged Out N o longer eligible based on patient's age to complete this topic Meningococcal B Vacine Aged Out No lo nger eligible based on patient's age to complete this topic RSV Immunization Patients Un ailyn 20 months Aged Out No longer eligible b ased on patient's age to complete this topic Varicella Vaccines Aged Out No longer eligible based on patient's age to complete this topic Care Teams Steel Shot Header Operator Relationship Specialty Start Date End Date Augustus Hernandez MD [address] [place] [address] PCP - General 09/21/22
--- OUTSIDE RECORDS SUMMARY | 2024-10-06 10:28 | XMS_ITS | Data Portability ---
Author Organization [place] [facility] Jah Morataya AONE Weston Address [address] [facility] [address] [place] [address] Care Team Providers Care Logistics Analyst Name Role Phone NATASHA BLOOM Referring Provider NATASHA BLOOM Primary Care Provider [phone] Assessment Encounter Date Assessment Date Assessment LastModified [...] I had well over 45 minutes of dxxj-kz-mnmx time with the patient. Please see under [...] on her diclofenac cream we did discuss djjn-vrx-[id number] Voltaren however she would prefer this sent off to her pharmacy. She states that they need to go to [place] versus [place] versus [facility]. I will send it off to [...] Left Knee Pain 2022 023 [facility], [address], [place], [address], 13:03:35 XR, knee, 1 or 2 view - Right Knee Pain 2022 023 [facility], [address], [place], [address], 3 13:03:35 XR, knee, weightbeari ng - Bilateral Knee Pain 2022 023 [facility], [address], [place], [address], 3 13:03:35 Medication Orders diclofenac 3 % topical gel 2023 024 [facility] #0315, [address] [place], [address], 4 10:42:53 lidocaine (PF) 100 mg/5 mL (2 %) injection syringe 2023 024 [email or web address] Not available 4 15:32:39 triamcinolo ne acetonide 40 mg/mL suspension for injection 2023 024 [email or web address] [facility] #0315, [address] [place], [address], 4 10:38:07 lidocaine (PF) 100 mg/5 mL (2 %) injection syringe 2023 024 [email or web address] [facility] #0315, [address] [place], [address], 4 10:38:07 triamcinolo ne acetonide 40 mg/mL suspension for injection 2023 [facility] [address] [place], [address], 4 10:38:07 Kenalog 40 mg/mL suspension for injection 2022 023 [email or web address] [facility] #0315, [address] [place], [address], 3 12:36:23 lidocaine (PF) 100 mg/5 mL (2 %) injection syringe [address]/Pharmacy #0315, [address] [place], [address], 3 12:36:28 Kenalog 40 mg/mL suspension for injection [address]/Pharmacy #0315, [address] [place], [address], 3 12:36:23 lidocaine (PF) 10 mg/mL (1 %) injection solution [address]/Pharmacy #0315, [address] [place], [address], 3 12:36:25 Kenalog 40 mg/mL suspension for injection 2022 023 [address] [place], [address], 3 12:36:23 lidocaine (PF) 10 mg/mL (1 %) injection solution 2022 023 [address] [place], [address], 12:36:25 Patient TargetsNo targets recorded. Patient Instructions Encounter Date Encounter Id Patient Instructions Last Modified By Organization Details Last Modified Time 02/12/2023 [id number] You have been provided with a cortisone [...] subchondral sclerosis Not available 02/12/2023 12:32:21 06/12/2023 [id number] You have been provided with a cortisone [...] portal [facility]. Not available 06/12/2023 12:34:52 10/09/2023 [id number] You have been provided with a cortisone [...] Time Osteoarthri tis of left knee joint 8084237235482 09 Active 2022 ALEXANDRA PARTIDA PA-C [address] [facility],[address], [place], [address], [place] [facility], P 3 12:34:08 Osteoarthri tis of right knee joint 2573985240436 00 Active 2022 Ernesto Clarke MD [address], [place], [address], [place] [facility], P 3 12:13:44 Pain of knee region 9528500156 Active 2023 ALEXANDRA PARTIDA PA-C [address] [facility],[address], [place], [address], [place] [facility], P 4 10:42:47 Problem Notes None recorded. Procedures Surgical History Date Name Laterality Status Provider Name and Address Organization Details Recorded Time 4 Knee Joint/Bursa Asp & Inj completed ALEXANDRA PARTIDA PA-C [address], [place], [address], [place] [facility], P 10/09/2023 07:51:15 3 Knee Joint/Bursa Asp & Inj completed ALEXANDRA PARTIDA PA-C [address], [place], [address], [place] [facility], P 06/12/2023 12:31:52 3 Knee Joint/Bursa Asp & Inj completed ALEXANDRA PARTIDA PA-C [address], [place], [address], [place] [facility], P 02/12/2023 12:31:27 3 Knee Joint/Bursa Asp & Inj completed Ernesto Clarke MD [address], [place], [address], [place] [facility], P 10/08/2022 12:13:37 delivery completed Celine Dorantes [facility], [facility] 10/08/2022 11:43:03 Imaging Results None recorded. Procedure Notes None recorded. Medical Equipment None Reported. Allergies Allergen ID Allergen Name Allergen Category Reaction Reaction Severity Criticality Documentation Date Start Date Code Code System Note Provider Name and Address Organization Details Recorded Time 1495 amoxicill in medicatio n Not available Not available Not available 10/08/2022 723 RxNorm Alysha valladares, [place] [facility], [facility] 3 12:37:19 1496 Substance with sulfonami de structure and antibacte rial mechanism of action (substanc e) medicatio n Not available Not available Not available 10/08/2022 05275 8003 SNOMED Celine Dorantes null, [place] [facility], [facility] 3 11:37:59 7012 Iodinated contrast media (substanc e) medicatio n Not available Not available Not available 02/12/2023 45069 2003 SNOMED Alysha Summer [place] null, [place] [facility], [facility] 3 16:22:32 Medications Name Sig Start [...] Last Updated DateTime 06/12/2023 162.56 [address] Alysha [place] [facility], P 06/12/2023 12:10:19 Date Recorded Body height Provider Name an d Address Organization Details Last Updated DateTime 10/09/2023 162.56 cm [facility] 10/09/2023 09:37:13 Date Recorded Body height Provider Name an d Address Organization Details Last Updated DateTime 02/12/2023 162.56 cm [facility] [place] [facility] 02/12/2023 12:46:24 Date Recorded Body weight Body mass index (BMI) Body height Provider Name and Address Organization Details Last Updated DateTime 10/08/2022 15704.44 g 30.6 kg/m2 162.[address] [place] [facility] 10/08/2022 11:40:06 Social History Question Answer Notes LastModified by Organizat ion Details LastModified Time Tobacco Smoking Status Never Smoker [facility], [place] [facility] 02/12/2023 16:24:25 What Is Your Level [...] Diagnosis/Indication Diagnosis SNOMED-CT Code Diagnosis ICD10 Code Diagnosis Note [id number] MD CHITO Torres [address] [facility] [address] [place] [address] 10/08/2022 11:30:23 10/08/2022 11:57:35 Osteoarthritis of right knee joint 9870123678 92502 M17.11 [id number] MD CHITO Omer [facility] [address] [address] 02/12/2023 12:38:39 02/12/2023 13:37:43 Pain of bilateral knee joints 4772138729 21228 M25.561 M25.562 Osteoarthr itis of right knee joint 6518742817 42692 M17.11 Osteoarthr itis of left knee joint 9885403807 57120 M17.12 [id number] [facility] [address] [place] [address] 06/12/2023 11:27:55 06/12/2023 12:04:19 Osteoarthritis of left knee joint 9538197987 12399 M17.12 Osteoarthr itis of right knee joint 7563482649 93117 M17.11 [id number] MD CHITO Omer [facility] [address] [place] [address] 10/09/2023 09:08:03 10/09/2023 09:44:21 Osteoarthritis of right knee joint 5169188005 55319 M17.11 Osteoarthr itis of left knee joint 4209294905 19086 M17.12 Additional diagnosis detail: Primary osteoarthr itis of left knee Pain of knee region 1003 936397 M25.561 G89.29 Additional diagnosis detail: Chronic pain of right knee Health Concerns Section Related Observation LastModified by Organization Detai ls LastModified Time None Recorded Concern Status LastModified by Organization Details LastModified Time None Recorded Advance Directives Directive None Recorded Payers Encounter Date Sequence Insurance Name Policy Number Policy Sheets Covered Member ID Sheets Member ID Guarantor Name 10/08/2022 1 [employer] MED[employer]ARE ADVANTAGE PLAN (MEDICARE REPLACEMENT HMO) [id number] Sushma Lynn [id number] Sushma Lynn 02/12/2023 1 [employer] PLAN (MEDICARE REPLACEMENT HMO) [id number] Sushma Lynn [id number] Sushma Lynn 06/12/2023 1 [employer]AGE PLAN (MEDICARE REPLACEMENT HMO) [id number] Sushma Lynn [id number] Sushma Lynn 10/09/2023 1 [employer]VANT[employer] PLAN (MEDICARE REPLACEMENT HMO) [id number] Sushma Lynn [id number] Sushma Lynn Notes Date Note Type Note [...] possible. Ernesto Clarke MD [address] [facility],[address] [address], [place], [address], [place] [facility], 10/08/2022 12:14:43 02/12/2023 text/html Assessment & Mari n: Dr. Clarke note from 10/08/2022s. Shane presents with bilateral knee pains, right [...] evaluation. ALEXANDRA PARTIDA PA-C [address] [facility] [address], [place], [address], [place] [facility], [facility] 02/12/2023 13:41:07 06/12/2023 text/html 68-year-old fema le history of bilateral knee arthritis. Cortisone injection has worn off in the right knee she is asymptomatic on the left here for follow-up requesting for cortisone injection of the right knee joint. No change in history ALEXANDRA PARTIDA PA-C [address] [facility],[address] [address], [place], [address], [place] [facility] 06/12/2023 12:35:37 10/09/2023 text/html 68-year-old fema le with bilateral knee osteoarthritis requesting for bilateral cortisone injections of the knees. Her left knee she has not had injections in greater than 6 months her right knee she had a cortisone injection on 06/12/2023 which is since worn off. She is not considering surgery ALEXANDRA PARTIDA PA-C [address] [facility],[address] [address], [place], [address], [place] [facility] 10/09/2023 10:44:46 OBGyn Episode No OBEpisode recorded.
== END 2024-10-06 09:57 | disposition home or self-care (01) ==
LOC: HO.HOS 09:23
PROVIDERS: PCP Internal Medicine; Visit Provider Orthopaedic Surgery
DX: M17.0 Bilateral primary osteoarthritis of knee (principal)
CPT/HCPCS: 20610; 99213

== ENCOUNTER → 2024-10-06 09:23 | Outpatient (BNVA) | payer OTHER, SELFPAY | PROVIDERS: PCP Internal Medicine; Visit Provider Orthopaedic Surgery | DX: M17.0 Bilateral primary osteoarthritis of knee (principal) | CPT/HCPCS: 20610; J1010; J2003 ==